=== PATIENT | female | born 1980 | race Caucasian/White ===

== ENCOUNTER 2024-01-28 07:54 | Outpatient (CLI) | payer OTHER, SELFPAY | END 2024-01-28 07:55 | disposition home or self-care (01) | PROVIDERS: PCP Family Medicine; Visit Provider Obstetrics & Gynecology | DX: Z01.818 Encounter for other preprocedural examination (principal); N92.0 Excessive and frequent menstruation with regular cycle | CPT/HCPCS: 36415; 86850; 86900; 86901 ==

== ENCOUNTER 2024-01-30 01:31 | Day surgery (SDC) | payer OTHER, SELFPAY ==
--- NOTE | 2024-01-22 14:54 | PC.NURSE ---
Report to the Outpatient Waiting Room, entrance under the green pavilion located off [facility], at time 1000 on date 01/30/24. Planned Procedure Time: 1200.? Time changes happen often and if your time is changed the preop area will call you the afternoon before. - You and your visitor will be asked to self-screen and do not enter if you have any COVID symptoms. Please call surgeon if you need to reschedule. - A mask is optional within the hospital at this time. Patients may have clear liquids (water, carbonated beverages, clear teas, apple juice) until 3 hours prior to surgery with a maximum of 20 ounces. 0900 - No food from midnight until time of surgery and no smoking - Infants may have breast milk until 4 hours before surgery, infant formula 6 hours prior to surgery. - Children will be allowed to drink immediately following surgery.? If applicable, please bring a bottle or sippy cup to assist with drinking. Juice, water, soda, and popsicles are readily available.? For infants on formula, please bring formula the day of surgery.? Pacifiers are allowed. Take only the following medications with a SIP of water on the morning of surgery: NONE DO NOT STOP ANY OF YOUR OTHER PRESCRIPTION MEDICATIONS PRIOR TO SURGERY EXCEPT THE FOLLOWING Medications to discontinue per physician PLEASE HOLD PHENTERMINE & METFORMIN DAY OF SURGERY Date to take last dose Please no make-up, nail turkmen, hairspray, perfume, deodorant, or body powder the day of surgery.? No jewelry (including any body piercings) or valuables the day of surgery, leave them at home.? Please take a shower or bath the night before, or the morning of, surgery with an antibacterial soap.? Wear comfortable, loose fitting clothing.? Children are encouraged to wear pajamas. - Jewelry must be removed prior to entering the operating room.? Rings and piercings that are not removed may be cut off. - The hospital will not accept responsibility for valuables.? - Please leave all valuables, including medications, at home the day of surgery. If you are going home after surgery, a licensed clark driver must drive you home.? - NO public transportation without another adult if you receive anesthesia. - We recommend that an adult stay with you for 24 hours following discharge. - We also recommend that you do not drive, make important decision, drink alcoholic beverages, or take any drugs that were not prescribed by your health care provider for at least 24 hours after your discharge time. For Pediatric surgeries, we recommend two adults accompany the child home. Follow any additional instructions given to you from your surgeon. Telephone instructions given to Patient- Ana Maria Carney and asked if any additional questions and then verbalized understanding. Patient advised to call surgeon office or pre surgery nurse liaison [phone] if any additional questions.
[2024-01-22 15:03] VITALS: BMI 37.3
[2024-01-30] VITALS (9 sets, daily range): BP systolic 111–147; BP diastolic 66–83; PULSE 54–79; RESP 12–20; TEMP 36.2–36.8; O2SAT 95–100
--- NOTE | ~2024-01-30 | XR_ITS ---
EXAMINATION: XR retrograde pyelo w/stent BI DATE: 01/30/2024 12:57 INDICATION: Bilateral ureteral stent placement for abdominal surgery TECHNIQUE: 4 fluoroscopic images of the abdomen were obtained during procedure performed by Dr. Servando walsh. Radiologist was not present for the imaging or procedure. The amount of fluoroscopy time used during this procedure was 0.5 minutes. COMPARISON: None. FINDINGS: Images demonstrate retrograde advancement of bilateral internal ureteral stents with proximal tips ne ar the level of the bilateral ureteropelvic junctions. Retrograde contrast injection demonstrates nor mal bilateral renal collecting systems. IMPRESSION: 1. Fluoroscopy utilized for placement of bilateral intraureteral stents with proximal tips near the l evel of the ureteropelvic junctions. See procedure note note for further detail. Reviewed, dictated and finalized at location B. IMPRESSION: 1. Fluoroscopy utilized for placement of bilateral intraureteral stents with pr oximal tips near the level of the ureteropelvic junctions. See procedure note n ote for further detail.
[2024-01-30] MEDS: LACTATED RINGERS 1,000 ML 30 ML IV CONT ×2 (10:45→14:30)
[2024-01-30] MEDS: ACETAMINOPHEN 500 MG TABLET 1000 MG PO (10:48)
[2024-01-30] MEDS: KETOROLAC 15 MG/ML VIAL (*BKC) IV PUSH (10:50)
[2024-01-30 10:59] LABS: Hematocrit 42.7 % (37.0-47.0); Hemoglobin 13.9 g/dL (12.0-15.0)
--- NOTE | 2024-01-30 11:03 | PM.IMHP ---
H&P: HPI History of Present Illness Date/Time: 01/30/24 11:03 Chief Complaint: Heavy vaginal bleeding Narrative: this patient is a 43-year-old female with menorrhagia. We have agreed to perform total laparoscopic hysterectomy bilateral salpingectomy The patient understands the details of the procedure. The procedure has been explained in detail. She understands the risks. She understands that injuries may occur that result in hospitalization, more surgery, and severe illness. She understands risk of hemorrhage and infection. She denies any chest pain or shortness of breath. She denies any nausea, vomiting, fever, chills. Review of Systems Review of Systems: All systems reviewed & are unremarkable except as noted in HPI and below Constitutional: Constitutional: Denies chills, Denies fatigue, Denies fever(s) and Denies weakness Eyes: Eyes: Denies blurry vision, Denies change in vision, Denies loss of peripheral vision, Denies loss of vision, Denies other visual disturbances and Denies eye pain ENT: Denies vertigo, Denies dizziness, Denies hearing loss, Denies mouth pain, Denies nasal obstruction, Denies neck mass and Denies neck pain Cardiovascular: Cardiovascular: Denies chest pain, Denies diaphoresis, Denies syncope, Denies leg edema and Denies dyspnea Respiratory: Respiratory: Denies chest congestion, Denies cough, Denies hemoptysis, Denies dyspnea and Denies wheezing Gastrointestinal: Gastrointestinal: Denies abdominal pain, Denies constipation, Denies diarrhea, Denies nausea and Denies vomiting Genitourinary: Genitourinary: Denies hematuria, Denies change in libido, Denies nocturia, Denies genital lesions, Denies flank pain and Denies urinary urgency Musculoskeletal: Musculoskeletal: Denies abnormal gait, Denies back pain, Denies myalgias, Denies arthralgias, Denies joint swelling, Denies muscle weakness and Denies neck pain Integumentary/Breasts: Skin/Breast: Denies swelling, Denies breast pain, Denies breast mass, Denies dry skin, Denies nipple discharge, Denies unusual bruising and Denies jaundice Neurologic: Denies Neuro-related abnormal movements, Denies Abnormal speech present, Denies abnormal gait, Denies behavioral changes, Denies confusion, Denies vertigo, Denies dizziness, Denies syncope, Denies loss of vision, Denies memory loss, Denies convulsions and Denies weakness Psychiatric: Psychiatric: Denies abnormal sleep pattern, Denies behavioral changes, Denies change in libido, Denies confusion, Denies depression, Denies anhedonia and Denies memory loss Endocrine: Endocrine: Reports no additional endocrine complaints, Denies change in libido and Denies fatigue Hematologic/Lymphatic: Hematologic/Lymphatic: Reports no additional hematologic/lymphatic complaints Allergic/Immunologic: Allergic/Immunologic: Reports no additional allergic/immunologic complaints and Denies wheezing PMF Social History Social History Smoking packs per day: 0.5 Smoking cigarettes per day: 10.0 Years smoked: 5 Smoking pack-years: 2.50 Smoking status: Former smoker Tobacco type: cigarettes and e-cigarettes/vaping Alcohol intake: never Spiritual care concerns: No Meds Home Medications and Allergies Home Medications Medication Instructions Recorded Confirmed Type metformin 500 mg tablet,extended 500 mg PO BID 01/22/24 01/30/24 History release 24 hr phentermine 15 mg capsule 15 mg PO DAILY 01/22/24 01/30/24 History Allergies Allergy/AdvReac Type Severity Reaction Status Date / Time No Known Allergies Allergy Verified 01/30/24 10:30 Vital Signs Vital Signs - 24 hr 01/30/24 10:14 Temperature 97.1 F L Pulse Rate 71 Respiratory Rate 18 Blood Pressure 127/83 Pulse Oximetry 98 Oxygen Delivery Room Air Exam Const: General: cooperative, healthy appearing, comfortable and no acute distress Orientation/consciousness: oriented to person, oriented to place and oriented to time HENMT: He
--- NOTE | 2024-01-30 11:06 | P.PNAN_ITS ---
Anes - Initial Pre Proc Eval Procedure: Operation Date: 01/30/24 12:00 Proposed Procedures p Total Laparoscopic Hysterectomy with Bilateral Salpingectomy - Song Rosales MD s Bilateral Stent Placement for Abdominal Surgery - Ilene Oneill MD Date/Time: 01/30/24 11:06 Surgeon: Song Rosales MD Pre Op Diagnosis: menorrhagia Patient Data Age: 43 Gender: F Height: 1.78 m Weight: 118.4 kg Last Vital Signs Temp 97.1 F L 01/30/24 10:14 Pulse 71 01/30/24 10:14 Resp 18 01/30/24 10:14 BP 127/83 01/30/24 10:14 Pulse Ox 98 01/30/24 10:14 O2 Del Method Room Air 01/30/24 10:14 Allergies Allergy/AdvReac Type Severity Reaction Status Date / Time No Known Allergies Allergy Verified 01/30/24 10:30 Home Medications Medication Instructions Recorded Confirmed Type metformin 500 mg tablet,extended 500 mg PO BID 01/22/24 01/30/24 History release 24 hr phentermine 15 mg capsule 15 mg PO DAILY 01/22/24 01/30/24 History Laboratory Tests 01/30/24 10:40 Hgb 13.9 g/dL (12.0-15.0) Hct 42.7 % (37.0-47.0) Patient hx anesthesia problems: none Family hx anesthesia problems: none Results Review: All pre-operative results and documents have been reviewed as part of the pre- operative evaluation. PMFSH Social History Social History Smoking packs per day: 0.5 Smoking cigarettes per day: 10.0 Years smoked: 5 Smoking pack-years: 2.50 Smoking status: Former smoker Tobacco type: cigarettes and e-cigarettes/vaping Alcohol intake: never Spiritual care concerns: No Anes - Eval Final PreProcedure Day of Procedure 01/30/24 11:06 Patient weight: obese Heart: regular rate and rhythm Lungs: clear to auscultation Airway: Mallampati scale class II Neurological: alert and oriented Last oral intake: >/= 8 hours ASA classification: II Emergent: no Anesthetic plan: proceed Anesthesia type and monitoring: general ETT and standard monitoring Results Review: All pre-operative results and documents have been reviewed as part of the pre- operative evaluation. Informed Consent: The patient's anesthetic plan and its attendant risks and benefits were discussed with the patient/family/POA. Questions were solicited and answers provided to the satisfaction of the patient/family/POA.
--- NOTE | 2024-01-30 11:12 | WPDHPUPDATE1 ---
History and Physical Update Update Date/Time: 01/30/24 11:12 History and Physical has been reviewed, including an updated exam of the patient. There are NO changes in the patient's condition. Risks, benefits, and alternatives have been discussed and questions answered. Patient agrees to proceed with procedure.
[2024-01-30 11:35] LABS: BEDSIDEPREGUCG Negative (Negative)
--- NOTE | 2024-01-30 11:55 | WPDHPUPDATE1 ---
History and Physical Update Update Date/Time: 01/30/24 11:55 History and Physical has been reviewed, including an updated exam of the patient. There are NO changes in the patient's condition. Risks, benefits, and alternatives have been discussed and questions answered. Patient agrees to proceed with procedure.
--- NOTE | 2024-01-30 11:55 | PM.IMHP ---
H&P: HPI History of Present Illness Date/Time: 01/30/24 11:55 Chief Complaint: ureteral identification PMFSH Social History Social History Smoking packs per day: 0.5 Smoking cigarettes per day: 10.0 Years smoked: 5 Smoking pack-years: 2.50 Smoking status: Former smoker Tobacco type: cigarettes and e-cigarettes/vaping Alcohol intake: never Spiritual care concerns: No Meds Home Medications and Allergies Home Medications Medication Instructions Recorded Confirmed Type metformin 500 mg tablet,extended 500 mg PO BID 01/22/24 01/30/24 History release 24 hr phentermine 15 mg capsule 15 mg PO DAILY 01/22/24 01/30/24 History Allergies Allergy/AdvReac Type Severity Reaction Status Date / Time No Known Allergies Allergy Verified 01/30/24 10:30 Vital Signs Vital Signs - 24 hr 01/30/24 10:14 Temperature 36.2 C L Pulse Rate 71 Respiratory Rate 18 Blood Pressure 127/83 Pulse Oximetry 98 Oxygen Delivery Room Air Exam Narrative: no acute distress unlabored breathing soft abdomen H&P: Results Labs Labs: Short CBC 01/30/24 Range/Units 10:40 Hgb 13.9 (12.0-15.0) g/dL Hct 42.7 (37.0-47.0) % Assessment and Plan Assessment and plan (1) Menorrhagia: Code(s): N92.0 - Excessive and frequent menstruation with regular cycle Status: Acute Plan Plan bilateral internal/external stents for ureteral identification risks/benefits/alternatives reviewed
[2024-01-30] MEDS: ceFAZolin 2 GM/D5W 50 ML 2 GM/50 ML BAG IVPB (12:13)
--- NOTE | 2024-01-30 12:54 | W.PM.PROC2 ---
Procedure Note - Detailed Date of Procedure 01/30/24 Pre-op Diagnosis desire for ureteral identification Post-op Diagnosis Same Procedure Performed Bilateral internal/internal lighted ureteral stent insertion, cystoscopy, retrograde pyelogram Surgeon Ilene Oneill MD Anesthesia General Description of Procedure Informed consent is obtained. Patient taken the operating. She was given preoperative IV antibiotics. She was induced anesthesia. She was prepped and draped in normal sterile fashion. A 22 F cystoscope was inserted through the urethra into the bladder. We inspected the bladder there no mucosal abnormalities. We cannulated the left ureteral orifice with a Sensor wire followed by the lighted stent sheath. Appropriate positioning was confirmed with a retrograde pyelogram showed that showed no hydronephrosis. A lighted internal/external stent was placed. Identical procedure performed on the contralateral side. A 16 F Tanner catheter was inserted and the stents were secured to the stent. The case was then turned over to reference assistant. Plan stent removal at the end of the case. Complications No immediate complications Condition Stable
[2024-01-30] MEDS: ceFAZolin SODIUM 1 GM VIAL (13:07)
[2024-01-30] MEDS: fentaNYL CITRATE INJ (*CRX) 100 MCG/2 ML VIAL 25 MCG IV PUSH ×8 (14:34→14:55)
--- NOTE | 2024-01-30 14:34 | W.PM.PROC2 ---
Procedure Note - Detailed Date of Procedure 01/30/24 Pre-op Diagnosis menorrhagia Post-op Diagnosis Same Procedure Performed Total laparoscopic hysterectomy With right salpingectomy Surgeon Song Rosales MD Anesthesia General Indications heavy vaginal bleed Findings enlarged boggy uterus. Scarring of the posterior cervix medial right adnexa and paracervical tissue. Normal-appearing bilateral ovaries and fallopian tubes. Description of Procedure This patient was taken to the operating room. She was prepped and draped in the dorsal lithotomy position after induction of general anesthesia. The uterine manipulator and Anaid cup were placed. This was done with a speculum and tenaculum. The speculum was placed. The cervix was grasped with a tenaculum. The stay sutures were placed at 3 and 9:00 a.m.. The stay sutures of 0 Vicryl were brought through the appropriately sized Anaid cup. The tip of the KATIE manipulator was placed in the intrauterine cavity. The cup was slid into place around the cervix and into the fornices. It was locked into place. The sutures were then wrapped around the handle and tied under tension. A 5 mm skin incision was made in the left upper quadrant the abdomen. A 5 mm trocar was inserted into the intrauterine cavity under direct visualization of the scope. Pneumoperitoneum was achieved. A left lower quadrant 11 mm incision was made with scalpel. An 11 mm trocar was inserted into the anterior abdominal cavity under direct visualization the scope. A 5 mm infraumbilical incision was made with a scalpel and a 5 mm trocar was inserted the intra-abdominal cavity under direct visualization of the scope. Bilateral ureteral lysis was performed. This was done from the pelvic brim down to the uterine artery. This was done with careful dissection using sharp and blunt dissection. The right fallopian tube was removed. The mesosalpinx around the fallopian tubes were cauterized transected with LigaSure cautery. This was done from the ovary to the uterine cornua. The fallopian tube was transected at the uterine cornu and amputated. The tube was taken out the left lower quadrant trocar site. In a stepwise fashion along the lateral aspects of the uterus the round ligament and broad ligaments were cauterized transected down to the level of the uterine arteries. A bladder flap was created in the bladder was moved distally to the end of the cervix and over the Anaid cup. The bilateral uterine arteries were cauterized and transected. Colpotomy was then performed. In a circumferential fashion the vagina was transected using unipolar cautery. The incision was made down on the Anaid cup. when the colpotomy was completed, the uterus and cervix were taken out through the vagina. A pneumo occluder was placed in the vagina. The vaginal cuff was closed with a 0 V lock suture in a running fashion. The pelvis was irrigated with copious amounts antibiotic irrigation. The ureters were again examined and found to be intact and flowing freely under the uterine arteries into the bladder. The bladder was intact. It was examined directly. Cystoscopy was performed after administration of methylene blue. The cystoscope was inserted. Bladder was distended with fluid. The ureteric meatus was observed bilaterally. Blue fluid was seen to egress bilaterally. The bladder was drained and the cystoscope was withdrawn. The vagina was irrigated with Betadine solution after removal of the Pneumo occluder. The patient was taken to recovery room. She was stable condition. Sponge lap and needle counts were correct x2. Drains Yes Packing No Pathology Yes Complications No immediate complications Condition Stable Disposition Floor
[2024-01-30] MEDS: HYDROmorphone HCL INJ (*CRX) 1 MG/ML SYR 0.5 MG IV PUSH ×6 (15:02→15:30)
[2024-01-30] MEDS: ONDANSETRON INJ 4 MG/2 ML VIAL IV PUSH ×2 (15:39→17:46)
[2024-01-30] MEDS: DEXTROSE 5%/0.45% SOD CHL 1,000 ML 125 ML IV CONT (16:22)
[2024-01-30] MEDS: KETOROLAC 30 MG/ML VIAL (*BKC) IV PUSH (16:24)
--- NOTE | 2024-01-30 17:23 | PC.NURSE ---
This patient, Ana Maria Carney, was received from PACU on 01/30/24 at 1553. Patient/family oriented to unit policies and routines
[2024-01-30] MEDS: SIMETHICONE 80 MG TAB.CHEW PO (17:50)
[2024-01-30] MEDS: HYDROcodone/acetaminophen (*CRX) 5-325 MG TABLET 1 TAB PO (20:37)
[2024-01-30] MEDS: IBUPROFEN 600 MG TABLET PO (22:35)
[2024-01-31] VITALS: BP 120/67; PULSE 55; RESP 16; TEMP 36.8; O2SAT 98
[2024-01-31] MEDS: HYDROcodone/acetaminophen (*CRX) 5-325 MG TABLET 1 TAB PO (02:01)
[2024-01-31] MEDS: IBUPROFEN 600 MG TABLET PO (04:32)
[2024-01-31 04:35] VITALS: BP 117/68; PULSE 51; RESP 18; TEMP 36.8; O2SAT 96
[2024-01-31] MEDS: HYDROcodone/acetaminophen (*CRX) 10-325 MG TABLET 1 TAB PO ×2 (08:04→12:32)
[2024-01-31] MEDS: SIMETHICONE 80 MG TAB.CHEW PO ×2 (08:05→12:32)
[2024-01-31 08:07] VITALS: BP 105/74; PULSE 56; RESP 16; TEMP 36.6; O2SAT 97
--- NOTE | 2024-01-31 10:01 | PM.GYNPNOP ---
CLOTH SPREADER - A/P Postoperative Procedures: Procedures Operation Date: 01/30/24 12:00 Actual Procedure Side Surgeon p Total Laparoscopic Hysterectomy with Right Salpingectomy Song Rosales MD s Bilateral Stent Placement for Abdominal Surgery Ilene Oneill MD Postoperative day: 1 Postoperative status: doing well Postoperative plan: see orders Time Spent With Patient Time: Total time spent is greater than 50% in coordination of care (as documented) at patient's floor/unit and/or counseling patient: Time with patient: less than 15 minutes CLOTH SPREADER- PN:Subj Post-Op Subjective Date/time seen: 01/31/24 10:01 Subjective: patient reports feeling better, patient has no complaints and pain is well controlled Exam Const: General: healthy appearing, comfortable and no acute distress Resp: Auscultation: clear to auscultation bilaterally, no rales, no rhonchi and no wheezes Cardio: Rate: regular rate Heart sounds: no click, no murmurs and no rubs GI: Inspection: non-distended Auscultation: normal bowel sounds Extrem: General: normal to inspection, no pedal edema and no calf tenderness CLOTH SPREADER - PN: Obj Data Vital Signs Vital Signs: Vital Signs - 24 hr 01/30/24 10:14 01/30/24 14:30 01/30/24 14:45 Temperature 97.1 F L 97.8 F Pulse Rate 71 79 54 L Respiratory Rate 18 20 14 Blood Pressure 127/83 143/69 H 145/78 H Pulse Oximetry 98 100 100 Oxygen Delivery Room Air Simple Face Mask Simple Face Mask Oxygen Flow Rate 8 8 01/30/24 15:00 01/30/24 15:15 01/30/24 15:30 Temperature Pulse Rate 68 74 74 Respiratory Rate 16 12 14 Blood Pressure 143/80 H 147/74 H 141/69 H Pulse Oximetry 98 98 97 Oxygen Delivery Room Air Room Air Room Air Oxygen Flow Rate 01/30/24 15:45 01/30/24 16:00 01/30/24 20:26 Temperature 97.9 F 98.3 F Pulse Rate 67 69 64 Respiratory Rate 14 16 18 Blood Pressure 138/76 133/78 111/66 Pulse Oximetry 97 95 97 Oxygen Delivery Room Air Oxygen Flow Rate 01/31/24 00:00 01/31/24 04:35 01/31/24 08:07 Temperature 98.2 F 98.2 F 97.9 F Pulse Rate 55 L 51 L 56 L Respiratory Rate 16 18 16 Blood Pressure 120/67 117/68 105/74 Pulse Oximetry 98 96 97 Oxygen Delivery Oxygen Flow Rate 01/31/24 08:00 Temperature Pulse Rate Respiratory Rate Blood Pressure Pulse Oximetry Oxygen Delivery Room Air Oxygen Flow Rate Intake/Output Intake/Output: Intake & Output 01/28/24 01/29/24 01/30/24 01/31/24 23:59 23:59 23:59 23:59 Intake Total 450 1000 Output Total 555 950 Balance -105 50 Meds/Results Medications: Active Medications Generic Name Dose Route Start Last Admin Trade Name Freq PRN Reason Stop Dose Admin Hydrocodone Bitart/Acetaminophen 1 tab 01/30/24 15:48 01/31/24 02:01 Hydrocodone/Acetaminophen (*Crx) 5-325 Mg Tablet PO 1 tab Q3H PRN Administration Pain Rated 5 or Less Hydrocodone Bitart/Acetaminophen 1 tab 01/30/24 15:48 01/31/24 08:04 Hydrocodone/Acetaminophen (*Crx) 10-325 Mg Tablet PO 1 tab Q3H PRN Administration Pain Rated 6 or Greater Dextrose/Sodium Chloride 1,000 mls @ 125 mls/hr 01/30/24 15:48 01/31/24 08:36 Dextrose 5% Sodium Chloride 0.45% IV CONT Not Given .Q8H [facility] Ibuprofen 600 mg 01/30/24 15:48 01/31/24 04:32 Ibuprofen 600 Mg Tablet PO 600 mg Q6H PRN Administration Cramping Ketorolac Tromethamine 30 mg 01/30/24 15:48 01/30/24 16:24 Ketorolac 30 Mg/Ml Vial (*Bkc) IV PUSH 02/04/24 15:47 30 mg Q6H PRN Administration Pain Rated 4-6 Naloxone HCl 0.1 mg 01/30/24 15:48 Naloxone Hcl 0.4 Mg/Ml Vial IV PUSH Q2M PRN Respiratory rate less than 10 Ondansetron HCl 4 mg 01/30/24 15:48 01/30/24 17:46 Ondansetron Inj 4 Mg/2 Ml Vial IV PUSH 4 mg Q6H PRN Administration Nausea And Vomiting Simethicone 80 mg 01/30/24 17:00 01/31/24 08:05 Simethicone 80 Mg Tab.Chew PO 80 mg TIDWM MATTHEW Administration Radiology Results: ITS Im
--- NOTE | 2024-01-31 10:54 | WPDANESPN ---
Anes - Prog Note Post-Op Date/Time: 01/31/24 10:54 Cardiovascular status: normal Respiratory status: normal Airway patency: baseline Mental status: baseline Post-Op hydration status: normal Vital Signs: Last Vital Signs Temp 36.6 C 01/31/24 08:07 Pulse 56 L 01/31/24 08:07 Resp 16 01/31/24 08:07 BP 105/74 01/31/24 08:07 Pulse Ox 97 01/31/24 08:07 O2 Del Method Room Air 01/31/24 08:00 O2 Flow Rate 8 01/30/24 14:45 Pain Score (VAS): 210 I/O: Intake & Output 01/30/24 01/31/24 01/31/24 23:59 07:59 15:59 Intake Total 1000 140 Output Total 525 950 Balance -525 50 140 Laboratory Tests 01/30/24 10:40 01/30/24 01/30/24 10:40 11:31 Hgb 13.9 Hct 42.7 POC Urine HCG, Qual Negative Post-procedural complaints: none Patient Feedback: Patient satisfied with anesthetic care.
[2024-01-31 12:38] VITALS: BP 123/59; PULSE 70; RESP 18; TEMP 36.7; O2SAT 97
== END 2024-01-31 13:37 | disposition home or self-care (01) ==
LOC: ANHSURGERY 09:57 → ANHOB2 15:53
PROVIDERS: Anesthesiology; Urology; PCP Family Medicine; Visit Provider Obstetrics & Gynecology
PROC: 0UT9FZZ Resection of Uterus, Via Natural or Artificial Opening With Percutaneous Endoscopic Assistance (ICD-10-PCS; CPT 58571; principal; 2024-01-30 12:00)
PROC: (CPT 52005; 2024-01-30 12:00)
DX: N92.0 Excessive and frequent menstruation with regular cycle (principal); N80.03 Adenomyosis of the uterus; Z87.891 Personal history of nicotine dependence; Z79.84 Long term (current) use of oral hypoglycemic drugs; E66.9 Obesity, unspecified; Z68.37 Body mass index [BMI] 37.0-37.9, adult
CPT/HCPCS: 52005; 58571; 36415; 74420; 85014; 85018; 88307; 99199; A9270; C1758; C1769; J0690; J1100; J1170; J1885; J2250; J2405; J2704; J3010; J7030; J7120